=== PATIENT | male | born 1980 | race Caucasian/White ===

== ENCOUNTER 2016-08-28 12:24 | Day surgery (SDC) | payer SELFPAY ==
[~2016-08-28 12:24] MED LIST: Betamethasone Acetate/Betamethasone Sod Phosphate 30 MG/5 ML MDV ONE; Iopamidol 408 MG/ML 50 ML SDV ONE; Lidocaine 2% 5 ML SDV ONE; Ropivacaine 0.5% 5 MG/ML 30 ML SDV ONE
--- NOTE | 2016-08-29 07:13 | OR ---
SURGEON: Sulma Pruett D.O. DATE OF PROCEDURE: 08/28/2016 OR STAFF PRESENT: 1. Rekha Kincaid RN. 2. Rodolfo Valdez RN. WOUND CLASSIFICATION: I. PREOPERATIVE DIAGNOSES: 1. 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 Lumbar spondylolisthesis. 3. 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 POSTOPERATIVE DIAGNOSES: 1. Lumbar spondylolysis bilateral pars defect at L5-S1 2. Lumbar spondylolisthesis. 3. 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 PROCEDURES PERFORMED: 1. L5-S1 pars injection on the left. 2. L5-S1 pars injection on the right. 3. Fluoroscopic guidance for needle placement. 4. Local with oral Valium for sedation. SCREENING QUESTIONS: The patient answered "No" to all the following questions: 1. Are you allergic to iodine, Betadine or latex? 2. Do you have a bleeding disorder? 3. Are you on anti-inflammatories or blood thinners? 4. Do you have any current local or systemic infections? MEDICAL NECESSITY: This is a patient with chronic low back pain who comes in for the above diagnostic procedure. This procedure is being performed in accordance with national guidelines written by the International [employer]; please see medical necessity note in chart. DESCRIPTION OF PROCEDURE: The patient had the procedure thoroughly explained including risks, benefits and alternatives. Consent was signed in my clinic indicating understanding and willingness to proceed. The patient presented to [facility] and was escorted to the dressing room to disrobe and change into a hospital gown. Preoperative history and screening were performed by my nurse. Vital signs were taken and stable. The patient reported that Valium 10 milligrams was taken prior to the procedure. The patient was brought back to the procedure room and placed in the prone position on the procedure room table. A pillow was placed under the abdomen in order to flatten the lumbar lordosis. The back was prepped with ChloraPrep and sterilely draped. All personnel in the procedure room were dressed in appropriate attire including surgical scrubs, head and shoe covers. This was to ensure sterility while in the treatment room. During the time fluoroscopy was in use all personnel in the operating room wore lead parra with thyroid collars. Sterile technique was used during the procedure. The fluoroscope was positioned to provide a right oblique view for the L5 pars injection. This was begun by anesthetizing the skin and soft tissues over the right pars defect. Then using fluoroscopic guidance, a sterile 22-gauge 3.5 inch spinal needle was positioned at the right pars defect. Precise needle placement was confirmed by fluoroscopy in AP and oblique views, and 0.2 cubic centimeters of IsoVue-200 contrast dye was injected through microbore tubing under live fluoroscopy and showed no intravascular flow pattern and adequate flow over the target. After negative aspiration, a mixture of celestone 6 mg, of 0.5% Ropivacaine and 2% lidocaine was injected . No complications were noted. Then the fluoroscope was then positioned for the left L5 pars injection. This was begun by anesthetizing the skin and soft tissues. Then with fluoroscopic guidance a sterile 22-gauge 3.5 inch spinal needle was positioned at the left pars defect. Precise needle placement was confirmed with 0.2 cubic centimeters of IsoVue-200 contrast dye injected through microbore tubing under live fluoroscopy showing no intravascular flow pattern and adequate flow over the target . Then mixture of celestone 6 mg , 2% lidocaine and bupivicaine was injected after negative aspiration without complications. The procedure was well tolerated and vital signs were stable during and after the procedure. The staff escorted the patient to the recovery area. The patient was given both oral and written discharge and followup instructions. The patient will follow up with a pain diary which will be evaluated over this evening doing things that would normally cause pain. We will evaluate the efficacy of the diagnostic lumbar medial branch blocks as the patient will follow up in the clinic the next day. The patient was given both oral and written discharge and followup instructions. The patient voiced understanding including understanding of those signs and symptoms that would require emergency care and knows how to contact the office if there are any questions or concerns in the meantime. PREOPERATIVE PAIN: 8/10. POSTOPERATIVE PAIN: /10. FOLLOW UP: Followup in the pain clinic in 3 weeks. AKOSUA / DERIK /[id number] JOSÉ MANUEL
== END 2016-08-28 14:44 ==
LOC: MW.SDS 12:24
PROVIDERS: ATTEND Anesthesiology
DX: M47.896 Other spondylosis, lumbar region (principal); M43.16 Spondylolisthesis, lumbar region; M96.1 Postlaminectomy syndrome, not elsewhere classified; I10 Essential (primary) hypertension; M79.1 Myalgia; G89.4 Chronic pain syndrome; Z79.891 Long term (current) use of opiate analgesic; Z79.899 Other long term (current) drug therapy; Z98.890 Other specified postprocedural states; Z90.49 Acquired absence of other specified parts of digestive tract; Z87.891 Personal history of nicotine dependence
CPT/HCPCS: 64493; J0702; J2795; Q9966

== ENCOUNTER → 2016-08-28 | Outpatient (CLI) | payer SELFPAY ==
--- NOTE | 2016-08-28 11:08 | CR ---
EXAMINATION: Lumbar spine HISTORY: Spondylosis COMPARISON: 01/10/2014 TECHNIQUE: AP, lateral, flexion and extension images obtained. FINDINGS: There is grade 2 anterolisthesis of L5 on S1 with bilateral spondylolysis. Bilateral poste rior fusion hardware is noted from L1 to L3 with an artificial vertebral spacer at L2. Mild marginal osteophytes are noted. The posterior elements are fused from L1 to L3 and likely at L4-L5. Position and alignment appear unchanged with flexion and extension with limited range of motion. The SI join ts are symmetric. IMPRESSION: 1. Postoperative and degenerative changes noted within the lumbar spine, grossly unchanged. 2. Vertebral spacer noted at L2 with bilateral fusion hardware from L1 to L3.
== END ==
LOC: MW.CHPM 09:23
PROVIDERS: ATTEND Anesthesiology
DX: M43.06 Spondylolysis, lumbar region (principal); Z98.890 Other specified postprocedural states; Z98.1 Arthrodesis status
CPT/HCPCS: 72110; 72110-26

== ENCOUNTER 2017-02-05 12:06 | Day surgery (SDC) | payer SELFPAY ==
--- NOTE | 2017-02-05 19:27 | OR ---
SURGEON: Sulma Pruett D.O. DATE OF PROCEDURE: 02/05/2017 OR STAFF PRESENT: 1. Frances Simpson. 2. Enrique Perez. DENTAL MECHANIC: Fransico. WOUND CLASSIFICATION: I. PREOPERATIVE DIAGNOSES: 1. L5-S1 pars defect. 2. Chronic low back pain. 3. History of lumbar fusion. 4. Right piriformis syndrome POSTOPERATIVE DIAGNOSES: 1. L5-S1 pars defect. 2. Chronic low back pain. 3. History of lumbar fusion. 4. Right piriformis syndrome PROCEDURES PERFORMED: 1. Right L5-S1 pars injection. 2. Fluoroscopic guidance for needle placement. 3. Local with oral Valium for sedation. 4. Right piriformis muscle injection with fluoroscopic guidance for needle placement. SCREENING QUESTIONS: The patient answered "No" to all the following questions: 1. Are you allergic to iodine, Betadine or latex? 2. Do you have a bleeding disorder? 3. Are you on anti-inflammatories or blood thinners? 4. Do you have any current local or systemic infections? MEDICAL NECESSITY: This is a patient with chronic low back pain who comes in for the above diagnostic procedure. This procedure is being performed in accordance with national guidelines written by the International [employer]; please see medical necessity note in chart. DESCRIPTION OF PROCEDURE: The patient had the procedure thoroughly explained including risks, benefits and alternatives. Consent was signed in my clinic indicating understanding and willingness to proceed. The patient presented to [facility] outpatient [facility] and was escorted to the dressing room to disrobe and change into a hospital gown. Preoperative history and screening were performed by my nurse. Vital signs were taken and stable. The patient reported that Valium 10 milligrams was taken prior to the procedure. The patient was brought back to the procedure room and placed in the prone position on the procedure room table. A pillow was placed under the abdomen in order to flatten the lumbar lordosis. The back was prepped with ChloraPrep and sterilely draped. All personnel in the procedure room were dressed in appropriate attire including surgical scrubs, head and shoe covers. This was to ensure sterility while in the treatment room. During the time fluoroscopy was in use all personnel in the operating room wore lead parra with thyroid collars. Sterile technique was used during the procedure. Then the fluoroscope was positioned to provide a right oblique view for the right L5- S1 pars injection. This was begun by anesthetizing the skin and soft tissues. The fluoroscope was positioned and a sterile 22-gauge 3.5 inch needle was placed at the junction of the transverse process in the superior articular process of the L5 vertebral body. Precise needle placement was confirmed by fluoroscopy. Then 0.2 cubic centimeters of IsoVue-200 contrast dye was injected through microbore tubing under live fluoroscopy and showed no intravascular flow pattern and adequate flow over the target right pars defect area. After negative aspiration, 1 cubic centimeters of 0.5% Ropivacaine, and 2 ml of 2% lidocaine PF and celestone was injected without complications. Right piriformis injection: Then the landmarks for a right piriformis muscle injection were identified under floroscopy: laterally by the medial side of the greater trochanter and medially at the lateral aspect of the sacroiliac joint. Then the skin and soft tissues were anesthetized at the lateral and medial borders piriformis muscle and a sterile 22-gauge 3.5 inch needle was placed and 1-2 mL Isovue-200 contrast dye was injected through micropore tubing under live fluoroscopy and showed adequate flow over the target performance muscle, no intravascular flow pattern and then after negative aspiration 2 mL of 2% lidocaine preservative- free and Celestone was injected at each site without complications. The procedure was well tolerated and vital signs were stable during and after the procedure. The staff escorted the patient to the recovery area. The patient was given both oral and written discharge and followup instructions. The patient will follow up with a pain diary which will be evaluated over this evening doing things that would normally cause pain. We will evaluate the efficacy of the diagnostic lumbar medial branch blocks as the patient will follow up in the clinic the next day. The patient was given both oral and written discharge and followup instructions. The patient voiced understanding including understanding of those signs and symptoms that would require emergency care and knows how to contact the office if there are any questions or concerns in the meantime. PREOPERATIVE PAIN: 7-10/10. POSTOPERATIVE PAIN: 2- 6/10. FOLLOWUP: Followup in the Pain Clinic in 2 weeks and in the morning by phone with [facility]. AKOSUA / DERIK /[id number] JOSÉ MANUEL
== END 2017-02-05 14:06 | disposition home or self-care (01) ==
LOC: MW.SDS 12:06
PROVIDERS: ATTEND Anesthesiology
DX: G89.4 Chronic pain syndrome (principal); G57.01 Lesion of sciatic nerve, right lower limb; M96.1 Postlaminectomy syndrome, not elsewhere classified; I10 Essential (primary) hypertension; M79.1 Myalgia; M43.16 Spondylolisthesis, lumbar region; Z79.891 Long term (current) use of opiate analgesic; Z79.899 Other long term (current) drug therapy; Z90.49 Acquired absence of other specified parts of digestive tract; Z98.890 Other specified postprocedural states; Z87.891 Personal history of nicotine dependence
CPT/HCPCS: 20552; 64493; J0702; J2795; Q9966

== ENCOUNTER 2017-07-16 13:10 | Day surgery (SDC) | payer SELFPAY ==
--- NOTE | 2017-07-17 12:53 | OR ---
SURGEON: Sulma Pruett D.O. DATE OF PROCEDURE: 07/16/2017 OR STAFF PRESENT: 1. Sally Valdez RN. 2. Silvina Seo RN. 3. RT Josue. WOUND CLASSIFICATION: I. PREOPERATIVE DIAGNOSES: 1. Bilateral pars defect. 2. Chronic low back pain. 3. Failed back surgery syndrome. POSTOPERATIVE DIAGNOSES: 1. Bilateral pars defect. 2. Chronic low back pain. 3. Failed back surgery syndrome. PROCEDURES PERFORMED: 1. Bilateral L5-S1 pars defect injection. 2. Fluoroscopic guidance for needle placement. 3. Local with oral Valium for sedation. SCREENING QUESTIONS: The patient answered "No" to all the following questions: 1. Are you allergic to iodine, Betadine or latex? 2. Do you have a bleeding disorder? 3. Are you on anti-inflammatories or blood thinners? 4. Do you have any current local or systemic infections? MEDICAL NECESSITY: This is a patient with chronic low back pain who comes in for the above diagnostic procedure. This procedure is being performed in accordance with national guidelines written by the International Sp[employer]; please see medical necessity note in chart. DESCRIPTION OF PROCEDURE: The patient had the procedure thoroughly explained including risks, benefits and alternatives. Consent was signed in my clinic indicating understanding and willingness to proceed. The patient presented to [facility] and was escorted to the dressing room to disrobe and change into a hospital gown. Preoperative history and screening were performed by my nurse. Vital signs were taken and stable. The patient reported that Valium 10 milligrams was taken prior to the procedure. The patient was brought back to the procedure room and placed in the prone position on the procedure room table. A pillow was placed under the abdomen in order to flatten the lumbar lordosis. The back was prepped with ChloraPrep and sterilely draped. All personnel in the procedure room were dressed in appropriate attire including surgical scrubs, head and shoe covers. This was to ensure sterility while in the treatment room. During the time fluoroscopy was in use all personnel in the operating room wore lead parra with thyroid collars. Sterile technique was used during the procedure. The fluoroscope was positioned to provide a right oblique view for the L5 dorsal ramus block. This was begun by anesthetizing the skin and soft tissues over the right sacral sulcus. Then using fluoroscopic guidance, a sterile 22-gauge 3.5 inch spinal needle was positioned at the right sacral ala. Precise needle placement was confirmed by fluoroscopy in AP and oblique views, and 0.2 cubic centimeters of IsoVue-200 contrast dye was injected through microbore tubing under live fluoroscopy and showed no intravascular flow pattern and adequate flow over the target nerves. After negative aspiration, 0.5 cubic centimeters of 0.5% Ropivacaine was injected. No complications were noted. Then the fluoroscope was positioned for the left L5 dorsal ramus block. This was begun by anesthetizing the skin and soft tissues. Then with fluoroscopic guidance a sterile 22-gauge 3.5 inch spinal needle was positioned at the left sacral ala. Precise needle placement was confirmed with 0.2 cubic centimeters of IsoVue-200 contrast dye injected through microbore tubing under live fluoroscopy showing no intravascular flow pattern and adequate flow over the target L5 nerve. Then, 0.5 cubic centimeters of 0.5% Ropivacaine was injected after negative aspiration without complications. The procedure was well tolerated and vital signs were stable during and after the procedure. The staff escorted the patient to the recovery area. The patient was given both oral and written discharge and followup instructions. The patient will follow up with a pain diary which will be evaluated over this evening doing things that would normally cause pain. We will evaluate the efficacy of the diagnostic lumbar medial branch blocks as the patient will follow up in the clinic the next day. The patient was given both oral and written discharge and followup instructions. The patient voiced understanding including understanding of those signs and symptoms that would require emergency care and knows how to contact the office if there are any questions or concerns in the meantime. PREOPERATIVE PAIN: 11/17. POSTOPERATIVE PAIN: 05/20. FOLLOWUP: Follow up in Pain Clinic in 3 weeks. HOGLCHR / MODL /[id number]
== END 2017-07-16 15:12 ==
LOC: MW.SDS 13:10
PROVIDERS: ATTEND Anesthesiology
DX: G89.4 Chronic pain syndrome (principal); M96.1 Postlaminectomy syndrome, not elsewhere classified; I10 Essential (primary) hypertension; G57.01 Lesion of sciatic nerve, right lower limb; M43.16 Spondylolisthesis, lumbar region; Z79.891 Long term (current) use of opiate analgesic; Z98.890 Other specified postprocedural states; Z79.899 Other long term (current) drug therapy
CPT/HCPCS: 62323; J0702; J2795; Q9966

== ENCOUNTER 2017-11-19 12:23 | Day surgery (SDC) | payer SELFPAY ==
--- NOTE | 2017-11-19 16:13 | OR ---
SURGEON: Sulma Pruett D.O. DATE OF PROCEDURE: 11/19/2017 OR STAFF PRESENT: 1. Darrian Denny RN. 2. Kennedy Chowdhury RN. 3. Suresh Stone, RT. WOUND CLASSIFICATION: I. PREOPERATIVE DIAGNOSES: 1. L5-S1 pars defects bilateral. 2. Chronic low back pain. POSTOPERATIVE DIAGNOSES: 1. L5-S1 pars defects bilateral. 2. Chronic low back pain. PROCEDURES PERFORMED: 1. Right L5-S1 pars defect injection. 2. Left L5-S1 pars defect injection. 3. Fluoroscopic guidance for needle placement. 4. local with oral valium for sedation. Preoperative pain 11/17, postop 05/20. Followup in the pain clinic in 3 weeks. SCREENING QUESTIONS: The patient answered "No" to all the following questions: 1. Are you allergic to iodine, Betadine or latex? 2. Do you have a bleeding disorder? 3. Are you on anti-inflammatories or blood thinners? 4. Do you have any current local or systemic infections? DESCRIPTION OF PROCEDURE: The patient had the procedure thoroughly explained including risks, benefits and alternatives. Consent was signed in my clinic indicating understanding and willingness to proceed. The patient presented to [facility] outpatient [facility] and was escorted to the dressing room to disrobe and change into a hospital gown. Preoperative history and screening were performed by my nurse. Vital signs were taken and stable. The patient reported that Valium 10 milligrams was taken prior to the procedure. The patient was brought back to the procedure room and placed in the prone position on the procedure room table. A pillow was placed under the abdomen in order to flatten the lumbar lordosis. The back was prepped with ChloraPrep and sterilely draped. All personnel in the procedure room were dressed in appropriate attire including surgical scrubs, head and shoe covers. This was to ensure sterility while in the treatment room. During the time fluoroscopy was in use all personnel in the operating room wore lead parra with thyroid collars. Sterile technique was used during the procedure. The fluoroscope was positioned to provide a right oblique view for the right L5 -S1 pars injection. This was begun by anesthetizing the skin and soft tissues over the right sacral sulcus. Then using fluoroscopic guidance, a sterile 22-gauge 3.5 inch spinal needle was positioned. Precise needle placement was confirmed by fluoroscopy in AP and oblique views, and 0.2 cubic centimeters of Isovue-200 contrast dye was injected through microbore tubing under live fluoroscopy and showed no intravascular flow pattern and adequate flow over the target. After negative aspiration, 2 cubic centimeters celestone and of 0.5% Ropivacaine was injected. No complications were noted. Then the fluoroscope was positioned for the left L5- S1 pars injection. This was begun by anesthetizing the skin and soft tissues. Then with fluoroscopic guidance a sterile 22-gauge 3.5 inch spinal needle was positioned at the left pars defect. Precise needle placement was confirmed with 0.2 cubic centimeters of Isovue-200 contrast dye injected through microbore tubing under live fluoroscopy showing no intravascular flow pattern and adequate flow over the target. Then 1 cubic centimeters of celestone and 0.5% Ropivacaine was injected after negative aspiration without complications. The procedure was well tolerated and vital signs were stable during and after the procedure.Then, the staff escorted the patient to the recovery area for further monitoring post procedure. The patient was given both oral and written discharge and followup instructions. The patient voiced understanding including understanding of those signs and symptoms that would require emergency care and knows how to contact the office if there are any questions or concerns in the meantime. AKOSUA / DERIK /[id number] JOSÉ MANUEL
== END 2017-11-19 14:00 | disposition home or self-care (01) ==
LOC: MW.SDS 12:23
PROVIDERS: ATTEND Anesthesiology
DX: G89.4 Chronic pain syndrome (principal); M43.06 Spondylolysis, lumbar region; M96.1 Postlaminectomy syndrome, not elsewhere classified; M43.16 Spondylolisthesis, lumbar region; I10 Essential (primary) hypertension; G57.01 Lesion of sciatic nerve, right lower limb; F11.90 Opioid use, unspecified, uncomplicated; Z79.899 Other long term (current) drug therapy; Z87.891 Personal history of nicotine dependence
CPT/HCPCS: 64493; J0702; J2795; Q9966